=== PATIENT | female | born 1960 | race Caucasian/White ===

== ENCOUNTER → 2018-03-09 | Outpatient (CLI) | payer BC | LOC: M.WC 07:30 | DX: S81.832A Puncture wound without foreign body, left lower leg, initial encounter (principal); W52.XXXA Crushed, pushed or stepped on by crowd or human stampede, initial encounter; Y93.89 Activity, other specified; Y99.8 Other external cause status; Y92.810 Car as the place of occurrence of the external cause ==

== ENCOUNTER → 2018-03-12 | Outpatient (CLI) | payer BC | LOC: M.WC 01:58 | DX: S81.802D Unspecified open wound, left lower leg, subsequent encounter (principal); X58.XXXD Exposure to other specified factors, subsequent encounter ==

== ENCOUNTER → 2018-03-16 | Outpatient (CLI) | payer BC | LOC: M.WC 05:08 | DX: S81.802D Unspecified open wound, left lower leg, subsequent encounter (principal); W22.8XXD Striking against or struck by other objects, subsequent encounter ==

== ENCOUNTER → 2018-03-19 | Outpatient (CLI) | payer BC | LOC: M.WC 03:41 | DX: S81.802D Unspecified open wound, left lower leg, subsequent encounter (principal); W22.8XXD Striking against or struck by other objects, subsequent encounter ==

== ENCOUNTER → 2018-03-30 | Outpatient (CLI) | payer BC | LOC: M.WC 03:41 | DX: S81.802D Unspecified open wound, left lower leg, subsequent encounter (principal); W22.8XXD Striking against or struck by other objects, subsequent encounter ==

== ENCOUNTER → 2018-04-06 | Outpatient (CLI) | payer BC | LOC: M.WC 04:41 | DX: S81.802D Unspecified open wound, left lower leg, subsequent encounter (principal); W22.8XXD Striking against or struck by other objects, subsequent encounter ==

== ENCOUNTER → 2018-04-13 | Outpatient (CLI) | payer BC | LOC: M.WC 05:22 | DX: S81.802D Unspecified open wound, left lower leg, subsequent encounter (principal); W22.8XXD Striking against or struck by other objects, subsequent encounter ==

== ENCOUNTER → 2018-04-20 | Outpatient (CLI) | payer BC | LOC: M.WC 04:58 | DX: S81.802D Unspecified open wound, left lower leg, subsequent encounter (principal); W22.8XXD Striking against or struck by other objects, subsequent encounter ==